=== PATIENT | male | born 1950 | race Caucasian/White ===

== ENCOUNTER 2018-03-31 07:01 | Day surgery (SDC) | payer OTHER ==
[~2018-03-31 07:01] MED LIST: CIPRO HC OTIC S10 ML OT; CIPRO500 MG PO; COZAAR100 MG PO; LIPITOR20 MG PO; MEDROL4 MG PO; NORVASC5 MG PO
== END 2018-03-31 13:45 | disposition home or self-care (01) ==
LOC: CIR.AMB 07:01
DX: L72.0 Epidermal cyst (principal); H71.91 Unspecified cholesteatoma, right ear; H72.91 Unspecified perforation of tympanic membrane, right ear; G51.0 Bell's palsy